=== PATIENT | male | born 1955 | race Two or more races ===

== ENCOUNTER 2018-02-06 15:45 | Inpatient (IN) | payer OTHER ==
[~2018-02-06] VITALS: Ht 172.7 cm; Wt 104.6 kg
[2018-02-06 15:14] VITALS: BP 138/77
[2018-02-06 15:28] LABS: BASOPHILS % (AUTO) 0.6 % (0.0-5.0); EOSINOPHILS % (AUTO) 3.2 % (0.0-8.0); LYMPHOCYTES % (AUTO) 36.7 % (21.0-51.0); MEAN CORPUSCULAR HEMOGLOBIN 27.2 pg (27.0-33.0); MEAN CORPUSCULAR HGB CONC 32.7 g/dL (32.0-36.0); MEAN CORPUSCULAR VOLUME 83.4 fL (79-99); MONOCYTES % (AUTO) 7.2 % (3.0-13.0); NEUTROPHILS % (AUTO) 52.3 % (40.0-77.0); NUCLEATED RED BLOOD CELLS 0.1 % (0.0-0.19); PLATELET COUNT (AUTO) 227 K/uL (130-400); RED BLOOD CELL COUNT(AUTO) 5.16 MIL/uL (4.50-6.20); WHITE BLOOD COUNT (AUTO) 6.6 K/uL (4.8-10.8)
[2018-02-06 15:29] LABS: APPEARANCE,URINE CLOUDY (CLEAR); BILIRUBIN,URINE NEGATIVE (NEGATIVE); COLOR,URINE YELLOW (YELLOW); GLUCOSE, URINE (UA) NEGATIVE (NEGATIVE); KETONES,URINE NEGATIVE (NEGATIVE); LEUKOCYTE ESTERASE ,URINE NEGATIVE (NEGATIVE); NITRATE,URINE NEGATIVE (NEGATIVE); OCCULT BLOOD,URINE SMALL (NEGATIVE); PROTEIN,URINE NEGATIVE (NEGATIVE); UROBILINOGEN,URINE 0.2 mg/dL (0.2-1.0)
[2018-02-06 15:38] LABS: CREATININE 1.1 mg/dL (0.5-1.5); POTASSIUM 3.9 mmol/L (3.5-5.1)
[2018-02-06 15:41] LABS: AMORPHOUS SEDIMENT,UR Few /LPF (None Seen); BACTERIA,URINE Few /HPF (None Seen); RBC,URINE 0-1 /HPF (0-1); SQUAMOUS EPITHELIAL CELL,UR Rare /HPF (0-2); WBC,URINE 0-1 /HPF (0-1)
[2018-02-06 15:42] LABS: INR 0.95 (0.85-1.15)
[~2018-02-06 15:45] MED LIST: LOSA25TA16 PO; METO50TA18 PO; ROSU40TA20 PO; SERT25TA5 PO
[2018-02-06] MEDS: CEFAZOLIN SODIUM 1 GM VIAL IVP SCH (16:00)
[2018-02-07] VITALS (15 sets, daily range): BP systolic 127–145; BP diastolic 80–86
[2018-02-07] MEDS ORDERED: CEFAZOLIN SODIUM 1 GM VIAL ONE ×3 (12:04→16:23)
[2018-02-07] MEDS ORDERED: SODIUM CHLORIDE 0.9% 1000ML 1,000 ML IV ONE (12:04)
[2018-02-07] MEDS ORDERED: METOCLOPRAMIDE 10 MG/2 ML VIAL ONE (15:41)
[2018-02-07] MEDS ORDERED: KETOROLAC TROMETHAMINE 15MG/ML ONE (15:42)
[2018-02-07] MEDS: ACETAMINOPHEN 325 MG TAB ONE ×4 (15:42→15:50)
[2018-02-07] MEDS ORDERED: CELECOXIB 200 MG CAP ONE (15:42)
[2018-02-07] MEDS ORDERED: OXYCODONE HCL 10 MG TAB.SR.12H PO ONE (15:43)
[2018-02-07] MEDS ORDERED: ACETAMINOPHEN EXTRA STRENGTH 500 MG TABLET ONE ×2 (15:52→15:55)
[2018-02-07] MEDS ORDERED: ONDANSETRON HCL MDV 20ML 2 MG/ML VIAL ONE (17:06)
[2018-02-07] MEDS ORDERED: LIDOCAINE PF 2% 5ML ABBOJECT ONE (17:06)
[2018-02-07] MEDS ORDERED: PROPOFOL 10 MG/ML 20ML VIAL IV ONE (17:07)
[2018-02-07] MEDS ORDERED: ROCURONIUM 10MG/1ML SYR 10 MG/ML ML ONE ×2 (17:08→19:03)
[2018-02-07] MEDS ORDERED: MIDAZOLAM HCL 1 MG/ML 2ML VIAL ONE (17:08)
[2018-02-07] MEDS ORDERED: FENTANYL CITRATE PF 50 MCG/1 ML 2ML VIAL ONE ×4 (17:09→21:28)
[2018-02-07] MEDS: CEFAZOLIN SODIUM 1 GM VIAL IVP SCH (18:25)
[2018-02-07] MEDS: TRANEXAMIC ACID 1000MG/10ML IV ONE ×2 (18:30→23:05)
[2018-02-07] MEDS ORDERED: VANCOMYCIN HCL 1 GM VIAL ONE (19:13)
[2018-02-07] MEDS ORDERED: EPHEDRINE SULFATE 50 MG/ML AMPULE ONE (22:10)
[2018-02-07] MEDS: SODIUM CHLORIDE 0.9% 1000ML 1,000 ML IV SCH (22:22)
[2018-02-07] MEDS ORDERED: POTASSIUM CHLORIDE 20 MEQ ERTAB PO PRN (22:30)
[2018-02-07] MEDS ORDERED: POTASSIUM CHLORIDE 10% ELIXIR 20 MEQ/15 ML UDCUP PO PRN (22:30)
[2018-02-07] MEDS ORDERED: ONDANSETRON HCL 4 MG/2 ML VIAL IVP PRN (22:30)
[2018-02-07] MEDS ORDERED: TEMAZEPAM 15 MG CAPSULE PO PRN (22:30)
[2018-02-07] MEDS ORDERED: OXYCODONE HCL 5 MG TAB PO PRN (22:30)
[2018-02-07] MEDS: ACETAMINOPHEN EXTRA STRENGTH 500 MG TABLET PO SCH (22:30)
[2018-02-07] MEDS ORDERED: DiphenhydrAMINE HCL 50 MG/ML VIAL IVP PRN (22:30)
[2018-02-07] MEDS ORDERED: POTASSIUM CHLORIDE 20MEQ/100ML 100 ML IV PRN (22:30)
[2018-02-07] MEDS ORDERED: FERROUS FUMARATE 324 MG TABLET PO PRN (22:30)
[2018-02-07] MEDS ORDERED: CALCIUM CARBONATE 500 MG TABLET PO PRN (22:30)
[2018-02-07] MEDS ORDERED: TRAMADOL HCL 50 MG TABLET PO PRN (22:30)
[2018-02-07] MEDS ORDERED: LIDOCAINE HCL-MPF 1% 2ML VIAL IVP PRN (22:30)
[2018-02-08] VITALS (13 sets, daily range): BP systolic 102–138; BP diastolic 56–87
[2018-02-08] MEDS: KETOROLAC TROMETHAMINE 15MG/ML IV PRN ×4 (00:19→23:31)
[2018-02-08] MEDS: OXYCODONE HCL 5 MG TAB PO PRN ×3 (01:47→15:52)
[2018-02-08] MEDS: CEFAZOLIN 3GM /D5W 100ML 100 ML IV SCH ×2 (03:30→14:02)
[2018-02-08] MEDS ORDERED: CEFAZOLIN SODIUM 1 GM VIAL ONE (03:39)
[2018-02-08] MEDS: ACETAMINOPHEN EXTRA STRENGTH 500 MG TABLET PO SCH ×3 (05:56→23:30)
[2018-02-08] MEDS: INSULIN HUMULIN R 100 UNIT/ML 3ML SQ SCH ×4 (06:08→20:38)
[2018-02-08 06:12] LABS: HEMATOCRIT 37.4 % (42-54); MEAN CORPUSCULAR HEMOGLOBIN 27.4 pg (27.0-33.0); MEAN CORPUSCULAR HGB CONC 32.8 g/dL (32.0-36.0); MEAN CORPUSCULAR VOLUME 83.4 fL (79-99); PLATELET COUNT (AUTO) 203 K/uL (130-400); RED BLOOD CELL COUNT(AUTO) 4.48 MIL/uL (4.50-6.20); RED CELL DISTRIBUTION WIDTH 14.5 % (11.0-15.5); WHITE BLOOD COUNT (AUTO) 12.9 K/uL (4.8-10.8)
[2018-02-08 06:19] LABS: POTASSIUM 4.3 mmol/L (3.5-5.1)
[2018-02-08] MEDS: METOPROLOL TARTRATE 25 MG TAB PO SCH ×2 (08:22→20:36)
[2018-02-08] MEDS: POLYETHYLENE GLYCOL 3350 17 GM POWD.PACK PO SCH (08:22)
[2018-02-08] MEDS: SODIUM CHLORIDE 0.9% 1000ML 1,000 ML IV SCH ×2 (08:22→18:22)
[2018-02-08] MEDS: SERTRALINE HCL 50 MG TABLET PO SCH (08:22)
[2018-02-08] MEDS: LOSARTAN 50 MG TABLET PO SCH (08:22)
[2018-02-08] MEDS: PREGABALIN 25 MG CAP PO SCH ×2 (08:23→20:36)
[2018-02-08] MEDS: FAMOTIDINE 20MG TAB 20 MG TAB PO SCH ×2 (08:23→20:36)
[2018-02-08] MEDS: CELECOXIB 200 MG CAP PO SCH ×2 (08:24→20:36)
[2018-02-08] MEDS: TAMSULOSIN HCL 0.4 MG CAP.ER.24H PO SCH (08:25)
[2018-02-08] MEDS: ASPIRIN 325 MG TABLET PO SCH ×2 (15:46→20:36)
[2018-02-08] MEDS ORDERED: ATORVASTATIN CALCIUM 40 MG TABLET PO SCH (21:00)
[2018-02-09] MEDS: OXYCODONE HCL 5 MG TAB PO PRN ×2 (03:24→09:15)
[2018-02-09] MEDS: ACETAMINOPHEN EXTRA STRENGTH 500 MG TABLET PO SCH ×2 (05:41→14:52)
[2018-02-09] MEDS: INSULIN HUMULIN R 100 UNIT/ML 3ML SQ SCH ×3 (05:45→16:30)
[2018-02-09] MEDS: KETOROLAC TROMETHAMINE 15MG/ML IV PRN (06:26)
[2018-02-09] MEDS: PREGABALIN 25 MG CAP PO SCH (09:14)
[2018-02-09] MEDS: TAMSULOSIN HCL 0.4 MG CAP.ER.24H PO SCH (09:14)
[2018-02-09] MEDS: POLYETHYLENE GLYCOL 3350 17 GM POWD.PACK PO SCH (09:14)
[2018-02-09] MEDS: METOPROLOL TARTRATE 25 MG TAB PO SCH (09:14)
[2018-02-09] MEDS: ASPIRIN 325 MG TABLET PO SCH (09:14)
[2018-02-09] MEDS: CELECOXIB 200 MG CAP PO SCH (09:14)
[2018-02-09] MEDS: LOSARTAN 50 MG TABLET PO SCH (09:15)
[2018-02-09] MEDS: FAMOTIDINE 20MG TAB 20 MG TAB PO SCH (09:15)
[2018-02-09] MEDS: SERTRALINE HCL 50 MG TABLET PO SCH (09:15)
[2018-02-09 09:21] VITALS: BP 125/60
[2018-02-09 11:46] VITALS: BP 114/62
[2018-02-09 16:41] VITALS: BP 113/62
[2018-02-09] MEDS ORDERED: ASPI-1012 PO (18:57)
[2018-02-09] MEDS ORDERED: HYDR-4457 PO (18:57)
[2018-02-10] MEDS ORDERED: BISACODYL 10 MG SUPP.RECT RC PRN (22:30)
== END 2018-02-09 20:14 | disposition home health service (06) | DRG 470 ==
LOC: EDSTATUS 15:45 → DAHIP 02-07 11:03 → 4BH 02-08
PROVIDERS: ADMIT Orthopaedic Surgery; ATTEND Orthopaedic Surgery
PROC: 0SRC0J9 Replacement of Right Knee Joint with Synthetic Substitute, Cemented, Open Approach (ICD-10-PCS; principal; 2018-02-07 18:15)
PROC: 0SPC04Z Removal of Internal Fixation Device from Right Knee Joint, Open Approach (ICD-10-PCS; 2018-02-07 18:15)
DX: M84.750 Atypical femoral fracture, unspecified (principal); M17.11 Unilateral primary osteoarthritis, right knee; F32.9 Major depressive disorder, single episode, unspecified; F41.9 Anxiety disorder, unspecified; E11.9 Type 2 diabetes mellitus without complications; I10 Essential (primary) hypertension; M21.70 Unequal limb length (acquired), unspecified site; E78.5 Hyperlipidemia, unspecified; Z80.8 Family history of malignant neoplasm of other organs or systems
CPT/HCPCS: 36415; 76000; 80048; 81001; 82948; 85025; 85027; 85610; 85730; 88300; 88305; 88311; 96374; 96375; 97039; J0690; J1815; J1885; J2001; J2250; J2704; J2765; J3010; J3370; J3490; J7030